=== PATIENT | male | born 1955 | race Caucasian/White ===

== ENCOUNTER 2018-02-05 04:36 | Emergency (ER) | payer SELFPAY ==
--- NOTE | 2018-02-05 04:45 | ER Report ---
History and Physical Time Seen By MD: 04:40 HPI/ROS CHIEF COMPLAINT: Facial numbness, chest tightness HISTORY OF PRESENT ILLNESS: 62-year-old male with a history of hypertension presents ambulatory to the ER. Patient woke up from sleep with some difficulty breathing and chest tightness. He also noted numbness of his middle face. Patient denies headache, blurry vision, or voice changes. He denies numbness, tingling or weakness in any of his extremities. He describes the chest pain as tightness. He notes no change with deep inspiration. He's had no leg swelling or calf pain. Patient states his lisinopril was increased from 10-20 mg several weeks ago. He denies recent illness, fever, chills, productive cough or sore throat. REVIEW OF SYSTEMS: Respiratory: As above Cardiovascular: As above Gastrointestinal: No vomiting, no abdominal pain. Musculoskeletal: No back pain. Allergies: Coded Allergies: ibuprofen (Verified Allergy, Unknown, 02/05/18) Home Meds Reported Medications Lisinopril/Hydrochlorothiazide (LISINOPRIL-HCTZ 20-12.5 MG TAB) 1 Each Tablet, 1 EACH PO 02/05/18 Reviewed Nurses Notes: Yes Old Medical Records Reviewed: Yes Constitutional Vital Sign - Last 24 Hours 02/05/18 02/05/18 02/05/18 02/05/18 04:42 04:43 04:51 05:00 Temp 97.8 Pulse 59 64 Resp 20 9 B/P (MAP) 147/112 147/112 (124) 167/93 (117) Pulse Ox 91 95 O2 Delivery Room Air 02/05/18 02/05/18 02/05/18 02/05/18 05:30 05:41 06:00 06:05 Pulse 65 62 Resp 13 16 B/P (MAP) 156/87 (110) 143/87 (105) Pulse Ox 90 90 Physical Exam General Appearance: The patient is alert, has no immediate need for airway protection and no current signs of toxicity. Vital signs stable, afebrile, pulse ox normal HEENT: Pupils equal and round no injection. EOMI, TMs normal, oropharynx without redness or exudate, Membranes are moist Respiratory: Chest is non tender, lungs are clear to auscultation. No chest wall tenderness Cardiac: regular rate and rhythm, no murmur Gastrointestinal: Abdomen is soft and non tender, no masses, bowel sounds normal. Musculoskeletal: Neck: Neck is supple and non tender. No JVD, no lymphadenopathy, no bruits Extremities have full range of motion and are non tender. No edema, no calf tenderness Skin: No rashes or lesions. DIFFERENTIAL DIAGNOSIS: After history and physical exam differential diagnosis was considered for chest pain including but not limited to myocardial ischemia, pericarditis pulmonary embolus, chest wall pain, pleural inflammation and pulmonary infectious causes. Additionally,weakness including but not limited to electrolyte abnormality, depression, anxiety, CVA, spinal cord abnormality, and infectious causes. Medical Decision Making Data Points Result Diagram: 02/05/18 0500 02/05/18 0500 Laboratory Hematology Test 02/05/18 05:00 Red Blood Count 5.98 M/uL (4.00-5.60) Mean Corpuscular Volume 84.9 fL (80.0-96.0) Mean Corpuscular Hemoglobin 28.9 pg (26.0-33.0) Mean Corpuscular Hemoglobin Concent 34.0 g/dL (32.0-36.0) Red Cell Distribution Width 13.3 % (11.5-14.5) Mean Platelet Volume 9.3 fL (7.2-11.1) Neutrophils (%) (Auto) 53.6 % (39.4-72.5) Lymphocytes (%) (Auto) 29.3 % (17.6-49.6) Monocytes (%) (Auto) 10.3 % (4.1-12.4) Eosinophils (%) (Auto) 6.0 % (0.4-6.7) Basophils (%) (Auto) 0.8 % (0.3-1.4) Nucleated RBC Relative Count (auto) 0.0 /100WBC Neutrophils # (Auto) 4.2 K/uL (2.0-7.4) Lymphocytes # (Auto) 2.3 K/uL (1.3-3.6) Monocytes # (Auto) 0.8 K/uL (0.3-1.0) Eosinophils # (Auto) 0.5 K/uL (0.0-0.5) Basophils # (Auto) 0.1 K/uL (0.0-0.1) Nucleated RBC Absolute Count (auto) 0.00 K/uL Prothrombin Time 14.1 seconds (12.0-14.4) Prothromb Time International Ratio 1.08 Activated Partial Thromboplast Time 35 seconds (23-35) D-Dimer Quantitative (PE/DVT) 0.39 ug/ml (0-0.50) Sodium Level 141 mmol/L (137-145) Potassium Level 3.3 mmol/L (3.5-5.0) Chloride Level 101 mmol/L (98-107) Carbon Dioxide Level 29 mmol/L (22-30) Blood Urea Nitrogen 16 mg/dl (9-21) Creatinine 1.00 mg/dl (0.66-1.25) Glomerular Filtration Rate Calc > 60.0 Random Glucose 97 mg/dl (75-110) Calcium Level 8.9 mg/dl (8.4-10.2) Total Bilirubin 0.9 mg/dl (0.2-1.3) Aspartate Amino Transf (AST/SGOT) 27 U/L (0-35) Alanine Aminotransferase (ALT/SGPT) 32 U/L (0-56) Alkaline Phosphatase 64 U/L (0-126) Troponin I < 0.012 ng/ml B-Type Natriuretic Peptide 19 pg/ml (0-100) Total Protein 7.3 gm/dl (6.3-8.2) Albumin 4.0 g/dl (3.5-5.0) Chemistry Test 02/05/18 05:00 White Blood Count 7.9 k/uL (4.5-11.0) Red Blood Count 5.98 M/uL (4.00-5.60) Hemoglobin 17.3 g/dL (14.0-18.0) Hematocrit 50.8 % (42.0-52.0) Mean Corpuscular Volume 84.9 fL (80.0-96.0) Mean Corpuscular Hemoglobin 28.9 pg (26.0-33.0) Mean Corpuscular Hemoglobin Concent 34.0 g/dL (32.0-36.0) Red Cell Distribution Width 13.3 % (11.5-14.5) Platelet Count 169 K/uL (150-450) Mean Platelet Volume 9.3 fL (7.2-11.1) Neutrophils (%) (Auto) 53.6 % (39.4-72.5) Lymphocytes (%) (Auto) 29.3 % (17.6-49.6) Monocytes (%) (Auto) 10.3 % (4.1-12.4) Eosinophils (%) (Auto) 6.0 % (0.4-6.7) Basophils (%) (Auto) 0.8 % (0.3-1.4) Nucleated RBC Relative Count (auto) 0.0 /100WBC Neutrophils # (Auto) 4.2 K/uL (2.0-7.4) Lymphocytes # (Auto) 2.3 K/uL (1.3-3.6) Monocytes # (Auto) 0.8 K/uL (0.3-1.0) Eosinophils # (Auto) 0.5 K/uL (0.0-0.5) Basophils # (Auto) 0.1 K/uL (0.0-0.1) Nucleated RBC Absolute Count (auto) 0.00 K/uL Prothrombin Time 14.1 seconds (12.0-14.4) Prothromb Time International Ratio 1.08 Activated Partial Thromboplast Time 35 seconds (23-35) D-Dimer Quantitative (PE/DVT) 0.39 ug/ml (0-0.50) Glomerular Filtration Rate Calc > 60.0 Calcium Level 8.9 mg/dl (8.4-10.2) Total Bilirubin 0.9 mg/dl (0.2-1.3) Aspartate Amino Transf (AST/SGOT) 27 U/L (0-35) Alanine Aminotransferase (ALT/SGPT) 32 U/L (0-56) Alkaline Phosphatase 64 U/L (0-126) Troponin I < 0.012 ng/ml B-Type Natriuretic Peptide 19 pg/ml (0-100) Total Protein 7.3 gm/dl (6.3-8.2) Albumin 4.0 g/dl (3.5-5.0) Coagulation Test 02/05/18 05:00 Prothrombin Time 14.1 seconds Prothromb Time International Ratio 1.08 Activated Partial Thromboplast Time 35 seconds D-Dimer Quantitative (PE/DVT) 0.39 ug/ml EKG/Imaging EKG Interpretation 12 lead EK Rhythm: normal sinus rhythm/sinus bradycardia, rate 59 bpm [place]: normal QRS: normal ST segments: normal, no evidence of ischemia or dysrhythmia. Imaging X-ray: Two-view chest x-ray was obtained. I viewed the images myself on the PACS system. My interpretation of the images is: No infiltrate, no effusion, normal mediastinum. The radiologist interpretation had no clinically significant variation from this interpretation. Results: CT scan of the head without contrast was obtained. The results of the study are no acute findings. The study was read by the radiologist. I viewed the images myself on the PACS system. ED Course/Re-evaluation ED Course Patient was admitted to an examination room. H&P was done. The differential diagnoses was considered. On conical examination. Patient has a nonfocal neurologic examination. His blood pressures mildly elevated. He has a history of essential hypertension. On lisinopril and hydrochlorothiazide. He woke with symptoms tonight's concern maybe cardiac in nature or stroke. He has facial numbness. He has chest tightness. He's never had symptoms like this before. Patient's evaluated with diagnostic laboratory studies, chest x-ray, EKG and a CT scan of his head. All studies are unremarkable. The results are discussed with him. His blood pressure comes down with observation. He's advised to follow-up with his primary care. His blood pressure rechecked in approximately one week. Decision to Disposition Date: Feb 05, 2018 Decision to Disposition Time: 05:55 Depart Departure Latest Vital Signs Vital Signs Date Time Temp Pulse Resp B/P (MAP) Pulse Ox O2 Delivery O2 Flow Rate FiO2 02/05/18 06:05 62 16 90 02/05/18 06:00 143/87 (105) 02/05/18 04:42 97.8 Room Air Impression: Primary Impression: Facial numbness Additional Impressions: Hypertension Dyspnea Condition: Improved Disposition: HOME OR SELF-CARE Patient Instructions: Hypertension (ED), Paresthesia (ED) Additional Instructions: Follow-up with your primary care and her blood pressure checked in approximately one week Problem Qualifiers Additional Impressions: Hypertension Hypertension type: essential hypertension Qualified Codes: I10 - Essential ( primary) hypertension Dyspnea Dyspnea type: unspecified Qualified Codes: R06.00 - Dyspnea, unspecified GRUPO BUNN DO Feb 05, 2018 04:45
[2018-02-05] MEDS ORDERED: LISI-353 PO (04:50)
[2018-02-05 05:14] LABS: PLATELET COUNT, AUTOMATED 169 K/uL (150-450)
[2018-02-05 05:26] LABS: INR 1.08
--- NOTE | 2018-02-05 05:27 | RADIOLOGY IMAGING REPORT ---
FACILITY: [facility] PATIENT NAME: Hai Weathers : 1955 MR: [id number] V: [id number] EXAM DATE: ORDERING PHYSICIAN: GRUPO BUNN TECHNOLOGIST: Location: [facility] - [place] Patient: Hai Weathers : 1955 Visit/Account:[id number] Date of Sevice: 02/05/2018 CHEST PA AND LATERAL 02/05/2018 5:10 AM. INDICATION: Chest pain. COMPARISON: None. FINDINGS: Lungs are well-expanded. The lungs are clear. No pneumothorax or pleural effusion. Pulmo nary vasculature is unremarkable. Heart size is normal. IMPRESSION: No acute cardiopulmonary abnormality. Report Dictated By: Meek Jimenez MD at 02/05/2018 5:21 AM Report E-Signed By: Meek Jimenez MD at 02/05/2018 5:22 AM WSN:[id number]
--- NOTE | 2018-02-05 05:30 | RADIOLOGY IMAGING REPORT ---
FACILITY: [facility] - [place] PATIENT NAME: Hai Weathers : 1955 MR: [id number] V: [id number] EXAM DATE: ORDERING PHYSICIAN: GRUPO BUNN TECHNOLOGIST: Location: [facility] - [place] Patient: Hai Weathers : 1955 Visit/Account:[id number] Date of Sevice: 02/05/2018 CT Head without contrast Indication: Facial numbness. Comparison: None available. Technique: Axial CT images were obtained through the brain from the skull base to the vertex without administration of IV contrast. One of the following dose optimization techniques was utilized in th e performance of this exam: Automated exposure control; adjustment of the mA and/or kV according to t he patient's size; or use of an iterative reconstruction technique. Specific details can be referen anita in the facility's radiology CT exam operational policy. Findings: No evidence of mass, mass effect, or midline shift. No acute intracranial hemorrhage or acute territorial infarction. No fracture. Globes and orbits are normal. The visualized paranasal sinuses and mastoid air spaces are clear. IMPRESSION: No acute intracranial abnormality. Report Dictated By: Meek Jimenez MD at 02/05/2018 5:22 AM Report E-Signed By: Meek Jimenez MD at 02/05/2018 5:26 AM WSN:[id number]
[2018-02-05 06:00] VITALS: BP 143/87
--- NOTE | 2018-02-05 06:41 | EKG ---
FACILITY: [facility] PATIENT NAME: KAREN JAIMES : [id number] MR: [id number] V: [id number] EXAM DATE: ORDERING PHYSICIAN: GRUPO BUNN TECHNOLOGIST: Malcolm Butts Reason : Blood Pressure : / mmHG Vent. Rate : 059 BPM Atrial Rate : 059 BPM P-R Int : 160 ms QRS Dur : 098 ms QT Int : 426 ms P-R-T Axes : -28 -01 003 degrees QTc Int : 421 ms Sinus bradycardia Otherwise normal ECG No previous ECGs available Confirmed by MARIA TERESA DIAZ ([id number]) on 02/05/2018 7:47:56 PM Referred By: Confirmed By:MARIA TERESA DIAZ
== END 2018-02-05 06:12 | disposition home or self-care (01) ==
LOC: ER 04:41
DX: I10 Essential (primary) hypertension (principal); R06.00 Dyspnea, unspecified
CPT/HCPCS: 70450; 71046; 82040; 82247; 82310; 82374; 82435; 82565; 82947; 83880; 84075; 84132; 84155; 84295; 84450; 84460; 84484; 84520; 85025; 85379; 85610; 85730; 93005; 99284